=== PATIENT | female | born 1990 | race Caucasian/White ===

== ENCOUNTER → 2019-02-23 | Outpatient (CLI) | payer BC ==
[~2019-02-23] MED LIST: BACTRIM DS 8001 TA1 PO; FLEXERIL5 MG PO; KEFLEX500 MG PO; NKHM; PREDNISONE20 MG PO; PRENATAL1 TA3 PO; VICODIN 5/500 505 MG PO; ZITHROMAX Z PA250 MG PO
== END | disposition home or self-care (01) ==
LOC: US 14:49
DX: N92.0 Excessive and frequent menstruation with regular cycle (principal)

== ENCOUNTER → 2019-12-10 | Outpatient (CLI) | payer BC | END | disposition home or self-care (01) | LOC: US 08:25 | PROVIDERS: ATTEND Nurse Practitioner Family | DX: K90.49 Malabsorption due to intolerance, not elsewhere classified (principal); R10.13 Epigastric pain; R19.7 Diarrhea, unspecified ==

== ENCOUNTER → 2019-12-24 | Outpatient (CLI) | payer BC | END | disposition home or self-care (01) | LOC: NM 12-23 07:00 | PROVIDERS: ATTEND Nurse Practitioner Family | DX: R19.7 Diarrhea, unspecified (principal) ==

== ENCOUNTER → 2020-02-07 | Outpatient (CLI) | payer BC ==
[~2020-02-07] MED LIST changes: +BIRTH CONTROL
== END | disposition home or self-care (01) ==
LOC: COVID19 00:47
PROVIDERS: ATTEND Surgery
DX: U07.1 COVID-19 (principal)

== ENCOUNTER → 2020-06-26 | Outpatient (CLI) | payer BC ==
[~2020-06-26] MED LIST changes: +COLACE100 MG PO; +PERCOCET 5-3251 EACH PO; +ZOFRAN4 MG PO
== END | disposition home or self-care (01) ==
LOC: COVID19 12:51
PROVIDERS: ATTEND Surgery
DX: Z01.818 Encounter for other preprocedural examination (principal); Z20.822 Contact with and (suspected) exposure to COVID-19

== ENCOUNTER → 2020-06-29 | Day surgery (SDC) | payer BC ==
[2020-06-26 13:28] VITALS: BP 154/101
[~2020-06-29] VITALS: Ht 160 cm; Wt 95.3 kg
[2020-06-29 06:35] VITALS: BP 154/85
[2020-06-29 08:28] VITALS: BP 157/93
[2020-06-29 08:43] VITALS: BP 157/69
[2020-06-29 08:58] VITALS: BP 153/78
[2020-06-29 09:13] VITALS: BP 126/67
[2020-06-29 09:28] VITALS: BP 126/67
== END ==
LOC: SDC 06-26 13:15
PROVIDERS: ATTEND Surgery
DX: K82.8 Other specified diseases of gallbladder (principal); K81.1 Chronic cholecystitis; R94.8 Abnormal results of function studies of other organs and systems; Z98.51 Tubal ligation status; Z79.899 Other long term (current) drug therapy

== ENCOUNTER 2021-05-22 17:42 | Emergency (ER) | payer BC ==
[2021-05-22 17:59] VITALS: BP 164/95
[2021-05-22 18:37] LABS: BASO % 0.2 % (0.0-1.0); EOS % 0.2 % (1.0-4.0); HEMATOCRIT 39.8 % (37.0-47.0); LYMPH # 3.1 10*3/uL (1.3-4.4); LYMPH % 19.4 % (27.0-41.0); MEAN CELL VOLUME 88.1 fl (81.0-99.0); MEAN CORPUSCULAR HGB 29.4 pg (27.0-31.0); MEAN CORPUSCULAR HGB CONC 33.4 g/dl (33.0-37.0); MEAN PLATELET VOLUME 9.5 fl (9.6-12.3); MONO # 1.1 10*3/uL (0.1-1.0); MONO % 6.5 % (3.0-9.0); NEUT # 11.8 10*3/uL (2.3-7.9); NEUT % 73.3 % (47.0-73.0); PLATELET COUNT AUTOMATED 292 10*3/uL (130-400); RED BLOOD COUNT 4.52 10*6/uL (4.10-5.10); RED CELL DISTRI WIDTH 12.5 % (0-14.5); WHITE BLOOD COUNT 16.1 10*3/uL (4.8-10.8)
[2021-05-22 18:42] LABS: BILIRUBIN Negative (Negative); BLOOD 3+ (Negative); CLARITY Cloudy (Clear); COLOR Yellow (Yellow); GLUCOSE Negative (Negative); KETONE 2+ (Negative); LEUKO ESTERASE 2+ (Negative); NITRITE Negative (Negative); SPECIFIC GRAVITY 1.025 (1.001-1.030)
[2021-05-22 18:50] LABS: BACTERIA 3+; RBC TNTC rbc/hpf (0-2); WBC 41-50 wbc/hpf (0-5)
[2021-05-22 18:51] LABS: ALKALINE PHOSPHATASE 66 U/L (45-117); BUN 11 mg/dl (7-24); CHLORIDE 107 mmol/L (98-107); LIPASE 48 U/L (73-393); POTASSIUM 3.9 mmol/L (3.5-5.1); SGOT/AST 11 IU/L (3-35); SGPT/ALT 33 U/L (12-78); SODIUM 137 mmol/L (136-145)
== END 2021-05-22 21:42 | disposition short-term general hospital (02) ==
LOC: ED 17:42
PROVIDERS: Physician Assistant
DX: N39.0 Urinary tract infection, site not specified (principal); N13.2 Hydronephrosis with renal and ureteral calculous obstruction

== ENCOUNTER 2024-06-20 10:56 | Emergency (ER) | payer MEDICAID ==
[~2024-06-20] VITALS: Ht 157.4 cm; Wt 95.3 kg
[2024-06-20] MEDS ORDERED: diphenhydrAMINE hydrochloride 50 MG/ML VIAL IV ONE (11:35)
[2024-06-20] MEDS ORDERED: Labetalol Hydrochloride 20 MG/4 ML SYR IV ONE (11:35)
[2024-06-20] MEDS ORDERED: Metoclopramide Hydrochloride 10 MG/2 ML VIAL IV ONE (11:35)
[2024-06-20 11:50] LABS: BASO % 0.4 % (0.0-1.0); EOS # 0.1 10*3/uL (0.0-0.4); EOS % 0.8 % (1.0-4.0); HEMATOCRIT 41.4 % (37.0-47.0); MEAN CELL VOLUME 89.2 fl (81.0-99.0); MEAN CORPUSCULAR HGB 29.1 pg (27.0-31.0); MEAN CORPUSCULAR HGB CONC 32.6 g/dl (33.0-37.0); MEAN PLATELET VOLUME 9.3 fl (9.6-12.3); MONO # 0.6 10*3/uL (0.1-1.0); MONO % 6.6 % (3.0-9.0); NEUT # 4.4 10*3/uL (2.3-7.9); NEUT % 53.2 % (47.0-73.0); PLATELET COUNT AUTOMATED 321 10*3/uL (130-400); RED BLOOD COUNT 4.64 10*6/uL (4.10-5.10); RED CELL DISTRI WIDTH 12.4 % (0-14.5); WHITE BLOOD COUNT 8.3 10*3/uL (4.8-10.8)
[2024-06-20 12:15] LABS: BUN 10 mg/dl (9-23); CHLORIDE 105 mmol/L (98-107); POTASSIUM 3.6 mmol/L (3.4-5.1)
[2024-06-20] MEDS ORDERED: NORVASC5 MG PO (12:42)
[2024-06-20] MEDS ORDERED: LASIX20 MG PO (12:48)
[2024-06-20 13:14] VITALS: BP 121/56
== END 2024-06-20 13:37 | disposition home or self-care (01) ==
LOC: ED 10:56
PROVIDERS: Emergency Medicine
DX: I16.0 Hypertensive urgency (principal); M79.641 Pain in right hand; R22.41 Localized swelling, mass and lump, right lower limb; R42 Dizziness and giddiness; R51.9 Headache, unspecified; Z79.899 Other long term (current) drug therapy